=== PATIENT | female | born 1960 | race Caucasian/White ===

== ENCOUNTER 2017-08-02 13:08 | Outpatient (CLI) | payer OTHER | END 2017-08-02 13:09 | disposition home or self-care (01) | LOC: BICMRI 13:08 | PROVIDERS: ATTEND Student in an Organized Health Care Education/Training Program | DX: G43.909 Migraine, unspecified, not intractable, without status migrainosus (principal) | CPT/HCPCS: 70553 ==

== ENCOUNTER 2017-11-28 14:23 | Outpatient (CLI) | payer OTHER ==
--- NOTE | 2017-12-11 17:29 | MMO ---
MAMMOGRAM DIGITAL SCREENING BILATERAL: DATE: 11/28/17 HISTORY: 56-year-old female for routine bilateral screening mammogram. COMPARISON: 04/27/16 and 01/08/14. TECHNIQUE: Digital mammographic views. Computer-aided detection (CAD) utilized. FINDINGS: There are scattered areas of fibroglandular density. There is no evidence of suspicious mass, suspicious calcifications, or architectural distortion. The re is no significant interval change since the prior mammogram. IMPRESSION: 1) BIRADS 1- Negative. 2) Recommendation: routine bilateral annual screening mammogram (unless the patient develops suspicio us clinical findings that would warrant earlier imaging follow up). germaine [] POS: [facility]
== END 2017-11-28 14:24 | disposition home or self-care (01) ==
LOC: SCSMAMMO 14:23
PROVIDERS: ATTEND Family Medicine
DX: Z12.31 Encounter for screening mammogram for malignant neoplasm of breast (principal)
CPT/HCPCS: 77067

== ENCOUNTER 2018-11-06 14:31 | Outpatient (CLI) | payer OTHER ==
--- NOTE | 2018-11-06 15:30 | BD ---
Exam: DEXA Bone Density 11/06/18 COMPARISON: None. HISTORY: 57-year-old postmenopausal female for screening. Lumbar Spine: BMD (g/cm2) T-SCORE L1 0.767 -2.0 L2 0.830 -1.8 L3 0.886 -1.8 L4 0.940 -1.1 L1-L4 0.864 -1.7 Femoral Neck: 0.680 -1.5 Total Proximal Femur: 0.946 0.0 Impression: Osteopenia. This patient has a ten year WHO fracture risk for a major osteoporotic fracture of 6.5% a nd of a hip fracture 0.5%. POS: [facility]
== END 2018-11-06 14:32 | disposition home or self-care (01) ==
LOC: BICMAMMO 14:31
PROVIDERS: ATTEND Family Medicine
DX: Z13.820 Encounter for screening for osteoporosis (principal); M85.89 Other specified disorders of bone density and structure, multiple sites; Z78.0 Asymptomatic menopausal state
CPT/HCPCS: 77080

== ENCOUNTER 2020-09-18 15:25 | Outpatient (CLI) | payer OTHER | END 2020-09-18 15:26 | disposition home or self-care (01) | LOC: BICRAD 15:25 | PROVIDERS: ATTEND Family Medicine | DX: S32.050D Wedge compression fracture of fifth lumbar vertebra, subsequent encounter for fracture with routine healing (principal) | CPT/HCPCS: 72100 ==

== ENCOUNTER 2021-02-28 20:24 | Emergency (ER) | payer OTHER ==
[2021-02-28 20:59] LABS: #Eosinphils 0.1 thou/uL (0.0-0.7); #Lymphocytes 2.2 thou/uL (1.20-3.40); #Monocytes 0.6 thou/uL (0.11-0.59); #Neutrophils 4.8 thou/uL (1.40-6.50); %Basophils 0.6 % (0.0-1.0); %Lymphocytes 28.1 % (21.0-51.0); %Monocytes 7.8 % (0.0-10.0); %Neutrophils 62.5 % (42.0-75.0); Hemoglobin 13.5 g/dL (12.0-16.0); Mean Corpuscular HGB CONC 34.7 g/dL (32.0-36.0); Mean Corpuscular Hemoglobin 31.9 pg (27.0-31.0); Platelet Count 222 thou/uL (130-400); Red Blood Cell (RBC) Count 4.22 mill/uL (4.20-5.40); White Blood Cell (WBC) Count 7.7 thou/uL (4.8-10.8)
[2021-02-28 21:22] LABS: ALT (SGPT) 29 U/L (8-55); AST (SGOT) 23 U/L (5-34); Albumin 3.9 g/dL (3.5-5.0); Alkaline Phosphatase 58 U/L (40-110); Anion Gap 13 mmol/L (10-20); BUN (Urea Nitrogen) 16 mg/dL (9.8-20.1); Bilirubin, Total 0.4 mg/dL (0.2-1.2); Calc. Creatinine Clearance 0 mL/min (70-130); Calcium 9.6 mg/dL (7.8-10.44); Carbon Dioxide 26 mmol/L (22-29); Chloride 105 mmol/L (98-107); Globulin 2.6 g/dL (2.4-3.5); Glucose 88 mg/dL (70-105); Potassium 4.2 mmol/L (3.5-5.1); Protein, Total 6.5 g/dL (6.0-8.3); Sodium 140 mmol/L (136-145)
[2021-02-28 21:31] LABS: Lipase 29 U/L (8-78)
== END 2021-02-28 23:17 | disposition home or self-care (01) ==
LOC: ERS 20:24
DX: R07.89 Other chest pain (principal); E03.9 Hypothyroidism, unspecified
CPT/HCPCS: 71045; 80053; 83690; 83735; 84439; 84443; 84484; 85025; 85379; 93005; 94760

== ENCOUNTER 2021-04-27 16:32 | Outpatient (CLI) | payer OTHER | END 2021-04-27 16:33 | disposition home or self-care (01) | LOC: BICRAD 16:32 | DX: K59.00 Constipation, unspecified (principal); R93.5 Abnormal findings on diagnostic imaging of other abdominal regions, including retroperitoneum | CPT/HCPCS: 74018 ==

== ENCOUNTER 2021-04-28 16:48 | Outpatient (CLI) | payer OTHER | END 2021-04-28 16:49 | disposition home or self-care (01) | LOC: RAD 16:48 | PROVIDERS: ATTEND Colon & Rectal Surgery | DX: K59.00 Constipation, unspecified (principal) | CPT/HCPCS: 74018 ==

== ENCOUNTER → 2021-04-30 | Outpatient (CLI) | payer OTHER | LOC: EDSTATUS 10:25 → RAD 17:04 | DX: K59.00 Constipation, unspecified (principal) | CPT/HCPCS: 74018 ==

== ENCOUNTER 2022-07-29 13:45 | Outpatient (CLI) | payer OTHER | END 2022-07-29 13:46 | disposition home or self-care (01) | LOC: ULT 13:45 | PROVIDERS: ATTEND Family Medicine | DX: I80.8 Phlebitis and thrombophlebitis of other sites (principal); I80.3 Phlebitis and thrombophlebitis of lower extremities, unspecified | CPT/HCPCS: 76881 ==

== ENCOUNTER 2023-04-05 14:52 | Outpatient (CLI) | payer OTHER | END 2023-04-05 14:53 | disposition home or self-care (01) | LOC: BICMAMMO 14:52 | PROVIDERS: ATTEND Family Medicine | DX: Z12.31 Encounter for screening mammogram for malignant neoplasm of breast (principal); N64.89 Other specified disorders of breast; Z91.89 Other specified personal risk factors, not elsewhere classified | CPT/HCPCS: 77063; 77067 ==

== ENCOUNTER 2023-10-24 13:44 | Outpatient (CLI) | payer OTHER | END 2023-10-24 13:45 | disposition home or self-care (01) | LOC: BICMAMMO 13:44 | PROVIDERS: ATTEND Family Medicine | DX: N63.20 Unspecified lump in the left breast, unspecified quadrant (principal); N64.89 Other specified disorders of breast | CPT/HCPCS: G0279 ==

== ENCOUNTER 2024-05-10 14:24 | Outpatient (CLI) | payer OTHER | END 2024-05-10 14:25 | disposition home or self-care (01) | LOC: BICMAMMO 14:24 | PROVIDERS: ATTEND Family Medicine | DX: N63.20 Unspecified lump in the left breast, unspecified quadrant (principal) | CPT/HCPCS: 77066; G0279 ==

== ENCOUNTER 2024-06-13 16:02 | Outpatient (CLI) | payer OTHER | END 2024-06-13 16:03 | disposition home or self-care (01) | LOC: BICRAD 16:02 | PROVIDERS: ATTEND Family Medicine | DX: M79.642 Pain in left hand (principal) ==